=== PATIENT | female | born 1950 | race Caucasian/White ===

== ENCOUNTER 2017-03-09 12:36 | Day surgery (SDC) | payer OTHER ==
[2017-03-06 11:17] LABS: HEMATOCRIT 50.1 % (34.6-47.8); WHITE BLOOD COUNT 7.5 x10^3/uL (3.4-10)
[2017-03-06 11:27] LABS: ASPARTATE AMINO TRANSFERASE 20 U/L (15-37); BLOOD UREA NITROGEN 16 mg/dL (7-18)
[2017-03-06 11:54] LABS: PATH.CAST-FLAG NOT PRESENT; SPERM-FLAG NOT PRESENT; SRC-FLAG NOT PRESENT; XTAL-FLAG NOT PRESENT; YLC-FLAG NOT PRESENT
[~2017-03-09] VITALS: Ht 167.6 cm; Wt 113.7 kg
[~2017-03-09 12:36] MED LIST: ALBU18HF INH; AMIT50TA PO; BUTA1CAP30 PO; CHOL2000 PO; FLUT9.9S NS; GABA300C10 PO; HYDR25TA6 PO; LORA10CA PO; METH500T7 PO; PROP40TA PO; ROPI1TAB2 PO; TIOT4MIS3 INH; TRAZ50TA18 PO
[2017-03-09 13:09] VITALS: BP 133/86
[2017-03-09] MEDS ORDERED: LACTATED RINGERS 1,000 ML IV SCH (13:28)
[2017-03-09] MEDS ORDERED: MIDAZOLAM 1 MG/ML, 2ML ONE (14:28)
[2017-03-09] MEDS ORDERED: FENTANYL PF 100 MCG/2ML ONE ×2 (14:28→16:55)
[2017-03-09] MEDS ORDERED: CEFAZOLIN 1,000 MG ONE (14:29)
[2017-03-09] MEDS ORDERED: DEXAMETHASONE 4 MG/ML, 1ML ONE (14:29)
[2017-03-09] MEDS ORDERED: PROPOFOL 10 MG/ML, 20ML ONE (14:29)
[2017-03-09] MEDS ORDERED: ONDANSETRON 2MG/ML, 2ML ONE (14:29)
[2017-03-09] MEDS ORDERED: CIPROFLOXACIN 400MG/200ML PMX ONE (15:32)
[2017-03-09] MEDS ORDERED: SUCCINYLCHOLINE 20 MG/ML, 10ML ONE (15:32)
[2017-03-09] MEDS ORDERED: MITOMYCIN 40 MG, WATER FOR INJECTION,STERILE 20 ML in SYRINGE 1 EA INTVESIC ONE (16:00)
[2017-03-09] MEDS ORDERED: MIDAZOLAM 1 MG/ML, 2ML IV PRN (16:30)
[2017-03-09] MEDS ORDERED: hydrALAzine 20 MG/ML, 1ML IV PRN (16:30)
[2017-03-09] MEDS ORDERED: LORazepam 2 MG/ML, 1ML IVPush PRN (16:30)
[2017-03-09] MEDS ORDERED: HYDROmorphone 1 MG/ML, 1ML IV PRN (16:30)
[2017-03-09] MEDS ORDERED: DIAZEPAM 5 MG/ML, 2ML IVPush PRN (16:30)
[2017-03-09] MEDS ORDERED: ALBUTEROL/IPRATROPIUM 2.5MG/0.5MG, 3 ML NPPB PRN (16:30)
[2017-03-09] MEDS ORDERED: LABETALOL 5MG/ML, 20ML IV PRN (16:30)
[2017-03-09] MEDS ORDERED: ONDANSETRON 2MG/ML, 2ML IVPush PRN (16:30)
[2017-03-09] MEDS ORDERED: MEPERIDINE/PF 25MG/0.5ML IVPush PRN (16:30)
[2017-03-09] MEDS ORDERED: OXYcodone 5 MG/5 ML ORAL.SOL UDC PO PRN (16:30)
[2017-03-09] MEDS ORDERED: PROMETHAZINE 25 MG/ML, 1ML IV PRN (16:30)
[2017-03-09] MEDS ORDERED: ACETAMINOPHEN 325 MG TABLET PO PRN (16:30)
[2017-03-09] MEDS ORDERED: OPIUM/BELLADONNA SUPP.RECT 16.2-60 MG ONE (16:38)
[2017-03-09] MEDS ORDERED: ACETAMINOPHEN 650 MG/20.3 ML UDC ONE (16:55)
[2017-03-09] MEDS ORDERED: OXYcodone 5 MG/5 ML ORAL.SOL UDC ONE (16:55)
[2017-03-09] MEDS: FENTANYL PF 100 MCG/2ML IV PRN ×2 (16:59→17:48)
[2017-03-09] MEDS ORDERED: OPIUM/BELLADONNA SUPP.RECT 16.2-60 MG PR ONE (17:00)
[2017-03-09] MEDS ORDERED: ALBUTEROL SULFATE 2.5 MG/3 ML HHN PRN (19:00)
[2017-03-09] MEDS ORDERED: morphine SULFATE 10 MG/ML, 1ML IV PRN (19:00)
[2017-03-09] MEDS ORDERED: D5%-0.45NACL+KCL 20MEQ 1,000 ML IV SCH (19:00)
[2017-03-09] MEDS ORDERED: TRAZODONE 50MG TABLET PO PRN (19:00)
[2017-03-09] MEDS ORDERED: ONDANSETRON 2MG/ML, 2ML IV PRN (19:00)
[2017-03-09] MEDS ORDERED: BUTALB/APAP/CAFFEINE 50MG/325MG/40MG PO PRN (19:30)
[2017-03-09] MEDS ORDERED: ROPINIROLE 1MG TABLET PO SCH (21:00)
[2017-03-09] MEDS ORDERED: GABAPENTIN 300 MG CAPSULE PO SCH (21:00)
[2017-03-09] MEDS ORDERED: METHOCARBAMOL 500 MG TABLET PO SCH (21:00)
[2017-03-09] MEDS ORDERED: AMITRIPTYLINE 50 MG TABLET PO SCH (21:00)
[2017-03-10] MEDS ORDERED: PROPRANOLOL 40 MG TABLET PO SCH (06:00)
[2017-03-10] MEDS ORDERED: HYDROCHLOROTHIAZIDE 25 MG TABLET PO SCH (09:00)
[2017-03-10] MEDS ORDERED: STIOLTO RESPIMAT INH SCH (09:00)
[2017-03-10] MEDS ORDERED: FLUTICASONE NASAL SPRAY 16GM NAS SCH (09:00)
[2017-03-10] MEDS ORDERED: CHOLECALCIFEROL 1,000 UNIT TABLET PO SCH (09:00)
[2017-03-10] MEDS ORDERED: LORATADINE 10 MG TABLET PO SCH (09:00)
== END 2017-03-09 21:35 | disposition home or self-care (01) ==
LOC: OUT 12:36 → 4NOR 18:34 → OUT 21:35
PROVIDERS: ATTEND Urology
DX: C67.9 Malignant neoplasm of bladder, unspecified (principal); G43.909 Migraine, unspecified, not intractable, without status migrainosus; Z87.39 Personal history of other diseases of the musculoskeletal system and connective tissue; Z98.890 Other specified postprocedural states
CPT/HCPCS: 36415; 52235; 80053; 81001; 85025; 87086; 88305; 93005; J0330; J0690; J0744; J1100; J2250; J2405; J2704; J3010; J7120

== ENCOUNTER → 2017-12-11 | Outpatient (CLI) | payer OTHER ==
[~2017-12-11] MED LIST changes: +TRAZ-136 PO; -TRAZ50TA18 PO
== END | disposition home or self-care (01) ==
LOC: CFH 14:36
PROVIDERS: ATTEND Nurse Practitioner
DX: Z12.2 Encounter for screening for malignant neoplasm of respiratory organs (principal); J44.9 Chronic obstructive pulmonary disease, unspecified; F17.210 Nicotine dependence, cigarettes, uncomplicated
CPT/HCPCS: G0297